=== PATIENT | male | born 1985 ===

== ENCOUNTER 2018-02-23 12:58 | Emergency (ER) | payer OTHER ==
[~2018-02-23] VITALS: Ht 180.3 cm; Wt 90.7 kg
[2018-02-23] MEDS ORDERED: KETO10TA2 PO (15:41)
[2018-02-23] MEDS ORDERED: ORPHENADRINE C100 MG PO (15:41)
== END 2018-02-23 15:58 | disposition home or self-care (01) ==
LOC: ER 12:58
DX: S13.4XXA Sprain of ligaments of cervical spine, initial encounter (principal); M62.838 Other muscle spasm; V49.9XXA Car occupant (driver) (passenger) injured in unspecified traffic accident, initial encounter; Y93.89 Activity, other specified; Y92.488 Other paved roadways as the place of occurrence of the external cause; Y99.8 Other external cause status